=== PATIENT | male | born 1950 | race Caucasian/White ===

== ENCOUNTER 2023-04-11 11:07 | Outpatient (CLI) | payer OTHER ==
[2023-04-11 13:42] LABS: #Monocytes 0.6 10x3/uL (0.0-1.1); #Neutrophils 6.1 10x3/uL (1.5-8.4); %Basophils 0.5 % (0.0-2.0); %Eosinophils 0.5 % (0.0-6.0); %Lymphocytes 8.6 % (18.0-47.0); %Monocytes 8.3 % (0.0-10.0); %Neutrophils 81.8 % (40.0-75.0); Hematocrit 42.7 % (38.8-50.0); Hemoglobin 14.3 g/dL (13.5-17.5); Mean Corpuscular HGB CONC 33.5 g/dL (32.0-36.0); Mean Corpuscular Volume 92.4 fl (81.2-95.1); Mean Platelet Volume 10.9 fl (7.4-10.4); Platelet Count 259 10x3/uL (150-450); RBC Distribution Width 13.9 % (11.5-14.5); Red Blood Cell (RBC) Count 4.62 10x6/uL (4.32-5.72); White Blood Cell (WBC) Count 7.5 10x3/uL (3.5-10.5)
[2023-04-11 13:45] LABS: Anion Gap 15 mmol/L (10-20); BUN (Urea Nitrogen) 16 mg/dL (8.4-25.7); Calc. Creatinine Clearance 0 mL/min (70-130); Calcium 9.4 mg/dL (7.8-10.44); Carbon Dioxide 26 mmol/L (23-31); Chloride 104 mmol/L (98-107); Estimated GFR 62; Glucose 77 mg/dL (83-110); Potassium 4.5 mmol/L (3.5-5.1); Sodium 140 mmol/L (136-145)
== END 2023-04-11 11:08 | disposition home or self-care (01) ==
LOC: LABBT 11:07
PROVIDERS: ATTEND Surgery
DX: Z01.818 Encounter for other preprocedural examination (principal); K40.20 Bilateral inguinal hernia, without obstruction or gangrene, not specified as recurrent
CPT/HCPCS: 80048; 85025; 93005; 93010

== ENCOUNTER 2023-04-17 06:03 | Day surgery (SDC) | payer OTHER ==
[2023-04-11 12:11] VITALS: BMI 26.2
[2023-04-17] MEDS ORDERED: Sodium Chloride 0.9% 100 ML ONE (08:41)
[2023-04-17] MEDS ORDERED: Lidocaine 1% MPF 2 ML VIAL ONE (08:41)
[2023-04-17] MEDS ORDERED: CEFAZOLIN 2 GM VIAL ONE (08:41)
[2023-04-17] MEDS ORDERED: PROPOFOL 20 ML ONE (08:51)
[2023-04-17] MEDS ORDERED: Rocuronium Bromide 10 MG/ML (10ML VIAL) ONE (08:52)
[2023-04-17] MEDS ORDERED: Lidocaine 1% PF 5 ML VIAL ONE (08:52)
[2023-04-17] MEDS ORDERED: Ondansetron PF 4 MG/2 ML Vial ONE ×2 (09:11→11:05)
[2023-04-17] MEDS ORDERED: EPINEPHrine 1 MG/ML VIAL ONE (09:44)
[2023-04-17] MEDS ORDERED: Bupivacaine 0.25% HCL 30 ML VIAL ONE (09:44)
[2023-04-17] MEDS ORDERED: fentaNYL PF 100 MCG/2 ML SYRINGE ONE ×2 (09:57→11:05)
[2023-04-17] MEDS ORDERED: ePHEDrine Sulfate 50 MG/10 ML VIAL ONE (10:12)
[2023-04-17] MEDS ORDERED: Dexamethasone 20 MG/5 ML VIAL ONE (10:12)
[2023-04-17] MEDS ORDERED: SUGAMMADEX SODIUM 200 MG/2 ML VIAL ONE (11:05)
[2023-04-17] MEDS ORDERED: HYDROcodone/Acetaminophen 5/325 mg Tablet ONE (12:51)
== END 2023-04-17 14:28 | disposition home or self-care (01) ==
LOC: SDC 06:03
PROVIDERS: ATTEND Surgery
PROC: 0YUA4JZ Supplement Bilateral Inguinal Region with Synthetic Substitute, Percutaneous Endoscopic Approach (ICD-10-PCS; principal; 2023-04-17)
DX: K40.20 Bilateral inguinal hernia, without obstruction or gangrene, not specified as recurrent (principal); Z90.89 Acquired absence of other organs; Z98.890 Other specified postprocedural states; Z79.899 Other long term (current) drug therapy; Z87.891 Personal history of nicotine dependence
CPT/HCPCS: A4314; C1781; J0171; J0665; J1100; J2405; J2704; J3490

== ENCOUNTER 2023-09-06 05:22 | Emergency (ER) | payer OTHER ==
[2023-09-06] MEDS ORDERED: Amiodarone 150 MG/3 ML VIAL ONE (05:26)
[2023-09-06] MEDS ORDERED: EPINEPHrine 1 MG/10 ML Abboject SYRINGE ONE (05:26)
[2023-09-06] MEDS ORDERED: Sodium Bicarb 50 MEQ/50 ML Abboject 8.4% SYRINGE ONE (05:26)
[2023-09-06] MEDS ORDERED: Calcium Chloride 1 GM/10 ML Abboject SYRINGE ONE (05:26)
[2023-09-06] MEDS ORDERED: Atropine Sulfate 1 mg/10 ml Syringe ONE (05:26)
[2023-09-06 06:07] LABS: Troponin I 0.713 ng/mL (< 0.028)
[2023-09-06 06:14] LABS: ALT (SGPT) 93 U/L (8-55); AST (SGOT) 133 U/L (5-34); Albumin 2.6 g/dL (3.4-4.8); Alkaline Phosphatase 51 U/L (40-110); Anion Gap 20 mmol/L (10-20); BUN (Urea Nitrogen) 22 mg/dL (8.4-25.7); Calc. Creatinine Clearance 0 mL/min (70-130); Calcium 8.4 mg/dL (7.8-10.44); Carbon Dioxide 23 mmol/L (23-31); Chloride 101 mmol/L (98-107); Estimated GFR 60; Globulin 2.1 g/dL (2.4-3.5); Glucose 236 mg/dL (83-110); Potassium 3.8 mmol/L (3.5-5.1); Protein, Total 4.7 g/dL (5.8-8.1); Sodium 140 mmol/L (136-145)
== END 2023-09-06 05:50 | disposition expired ==
LOC: ERS 05:22
DX: I46.9 Cardiac arrest, cause unspecified (principal); I10 Essential (primary) hypertension; G20.A1 Parkinson's disease without dyskinesia, without mention of fluctuations; Z95.0 Presence of cardiac pacemaker
CPT/HCPCS: 31500; 36416; 80053; 84484; 92950; J0171; J0282; J0461